=== PATIENT | female | born 1965 | race Caucasian/White ===

== ENCOUNTER → 2020-08-26 09:31 | Outpatient (CLI) | payer BC, SELFPAY ==
[2014-08-08 08:36] VITALS: BMI 32.4
[2020-08-26 09:41] LABS: Mucous, Urine 0 SEEN /hpf (<or=2+); Red Blood Cells-Urine 0 SEEN /hpf (0-5); Squamous Epithelial Cells - UA 0 SEEN /hpf (5-10)
[2020-08-26 12:25] LABS: Absolute Lymphocyte Count 1.75 X10^3/uL (0.83-4.51); Absolute Neutrophil Count 2.7 X10^3/uL (2.0-7.7); Basophil# 0.02 X10^3/uL; Basophil% 0.4 % (0-1); Eosinophil# 0.07 X10^3/uL; Eosinophils% 1.5 % (0-5); Hematocrit 40.6 % (37-47); Hemoglobin 13.1 g/dL (12.0-15.0); Lymphocyte # 1.75 X10^3/ul (4.0); Lymphocyte % 36.4 % (19-41); Mean Corp Hgb Conc 32.3 g/dL (32-36); Mean Corpuscular Hgb 29.8 pg (27.0-32.0); Mean Corpuscular Volume 92.5 fL (81-99); Monocyte# 0.23 X10^3/uL; Monocyte% 4.8 % (0-10); NRBC Flagged by Analyzer 0 % (0-5); Neutrophil # 2.73 X10^3/uL (2.7-7.7); Neutrophil % 56.7 % (47-70); Platelet Count 239 K/mm3 (150-450); Red Blood Count 4.39 M/mm3 (4.2-5.4); White Blood Count 4.8 K/mm3 (4.4-11.0)
[2020-08-26 12:43] LABS: Color, Urine Yellow (Yellow); Glucose, Dipstick Normal (Normal); Ketone-Dipstick Negative (Negative); Leukocyte Esterase-Dipstick 100 /ul (Negative); Nitrite-Dipstick Negative (Negative); Occult Blood-Urine Negative /ul (Negative); Protein-Dipstick Negative (Negative); Specific Gravity, Urine 1.015 (1.002-1.030); Urine Bilirubin Dipstick Negative (Negative); Urine Clarity Clear (Clear); Urine Urobilinogen Normal (Normal)
[2020-08-26 12:56] LABS: Bacteria RARE /hpf (None Seen); White Blood Cells 0-5 SEEN /hpf (0-5)
[2020-08-26 12:59] LABS: ALB/GLOB Ratio 0.9 RATIO (0.9-2.4); AST(SGOT) 19 U/L (15-37); Alanine Aminotransfer ALT/SGPT 24 U/L (13-56); Albumin, Serum 3.7 g/dL (3.2-5.0); Alkaline Phosphatase 88 U/L (45-117); Anion Gap 6 (5-15); BUN 10 mg/dL (7-18); BUN/Creat Ratio 11.3 RATIO (10-20); Calcium,Total 9.3 mg/dL (8.5-10.1); Chloride 109 mmol/L (98-107); Cholesterol 220 mg/dL (200); Creatinine, Serum 0.88 mg/dL (0.55-1.02); EST Glomerular Filtration Rate 71 mL/min (>60); Est Glom Filt Rate - Afr Amer 86 mL/min (>60); Globulin 4.2 g/dL (2.2-4.2); Glucose 84 mg/dL (74-106); High Density Lipoprotein 49 mg/dL; Potassium 3.7 mmol/L (3.5-5.1); Protein, Total 7.9 g/dL (6.4-8.2); Sodium Level 143 mmol/L (136-145); Thyroid Stim Hormone (TSH) 1.67 uIU/mL (0.358-3.74); Triglycerides 99 mg/dL; Very Low Density Lipoprotein 20 mg/dL (5-40)
[2020-08-26 14:22] LABS: Microalbumin,Random Urine < 5.0 mg/L (NO RANGE EST.)
== END ==
PROVIDERS: PCP Internal Medicine; Referring Provider Internal Medicine; Visit Provider Internal Medicine
DX: E78.00 Pure hypercholesterolemia, unspecified (principal); I10 Essential (primary) hypertension
CPT/HCPCS: 36415; 80053; 80061; 81001; 82043; 82570; 84443; 85025

== ENCOUNTER → 2022-03-17 | Outpatient (CLI) | payer OTHER, SELFPAY ==
--- NOTE | 2022-03-17 06:51 | US_ITS ---
EXAM: US ABDOMEN LIMITED, RIGHT UPPER QUADRANT CLINICAL INDICATION: RUQ PAIN intermittant -- burping -- bloating TECHNIQUE: Real-time ultrasound of the right upper quadrant with image documentation. This report was created using [employer] report [employer] technology. COMPARISON: None. FINDINGS: LIVER: Liver measures 15.5 cm. There is normal echotexture. No intrahepatic biliary ductal dilation. GALLBLADDER: Gallbladder wall measures 3 mm. No shadowing gallstone. No pericholecystic fluid. Negative sonographic Mercedes''s sign. COMMON BILE DUCT: Common bile duct measures 3 mm. The proximal common bile duct is within normal limits for the patient''s age. PANCREAS: Unremarkable as visualized. No focal abnormality is demonstrated in the pancreas. No pancreatic ductal dilatation. RIGHT KIDNEY: The right kidney measures 10.9 x 3.2 x 3.5 cm. There is no hydronephrosis. No shadowing calculus. No focal lesion or perinephric collection is demonstrated. US/Abdomen Limited IMPRESSION: No acute findings in the right upper quadrant. Electronically Signed: Pedro Carlisle MD at 10:55 EDT ,
[2022-03-17 06:54] LABS: Bacteria 0 SEEN /hpf (None Seen); Mucous, Urine 0 SEEN /hpf (<or=2+)
[2022-03-17 07:09] LABS: Absolute Lymphocyte Count 1.39 X10^3/uL (0.83-4.51); Absolute Neutrophil Count 2.7 X10^3/uL (2.0-7.7); Basophil# 0.03 X10^3/uL; Basophil% 0.7 % (0-1); Eosinophil# 0.13 X10^3/uL; Eosinophils% 2.8 % (0-5); Hematocrit 38.2 % (37-47); Hemoglobin 12.8 g/dL (12.0-15.0); Lymphocyte # 1.39 X10^3/ul (0.83-4.51); Lymphocyte % 30.3 % (19-41); Mean Corp Hgb Conc 33.5 g/dL (32-36); Mean Corpuscular Hgb 30.3 pg (27.0-32.0); Mean Corpuscular Volume 90.5 fL (81-99); Mean Platelet Vol. 9.1 fl (6.2-12.0); Monocyte# 0.31 X10^3/uL; Monocyte% 6.8 % (0-10); NRBC Flagged by Analyzer 0 % (0-5); Neutrophil # 2.72 X10^3/uL (2.7-7.7); Neutrophil % 59.2 % (47-70); Platelet Count 204 K/mm3 (150-450); RBC Distribution Width CV 12.2 % (11.6-14.6); RBC Distribution Width SD 40.6 fl (35.1-43.9); Red Blood Count 4.22 M/mm3 (4.2-5.4); White Blood Count 4.6 K/mm3 (4.4-11.0)
[2022-03-17 07:13] LABS: Glucose, Dipstick Normal (Normal); Ketone-Dipstick Negative (Negative); Leukocyte Esterase-Dipstick 25 /ul (Negative); Nitrite-Dipstick Negative (Negative); Occult Blood-Urine 10 /ul (Negative); Protein-Dipstick Negative (Negative); Urine Bilirubin Dipstick Negative (Negative); Urine Urobilinogen Normal (Normal)
[2022-03-17 07:37] LABS: ALB/GLOB Ratio 0.9 RATIO (0.9-2.4); AST(SGOT) 16 U/L (15-37); Alanine Aminotransfer ALT/SGPT 19 U/L (13-56); Albumin, Serum 3.7 g/dL (3.2-5.0); Alkaline Phosphatase 85 U/L (45-117); Anion Gap 5 (5-15); BUN 12 mg/dL (7-18); BUN/Creat Ratio 14.7 RATIO (10-20); Calcium,Total 9.1 mg/dL (8.5-10.1); Chloride 110 mmol/L (98-107); Cholesterol 220 mg/dL (200); Creatinine, Serum 0.82 mg/dL (0.55-1.02); EST Glomerular Filtration Rate 77 mL/min (>60); Est Glom Filt Rate - Afr Amer 93 mL/min (>60); Globulin 3.9 g/dL (2.2-4.2); Glucose 94 mg/dL (74-106); High Density Lipoprotein 46 mg/dL; Potassium 3.8 mmol/L (3.5-5.1); Protein, Total 7.6 g/dL (6.4-8.2); Sodium Level 143 mmol/L (136-145); Triglycerides 114 mg/dL; Very Low Density Lipoprotein 23 mg/dL (5-40)
[2022-03-17 07:38] LABS: Microalbumin,Random Urine < 5.0 mg/L (NO RANGE EST.)
[2022-03-17 07:57] LABS: Color, Urine YELLOW (Yellow); Urine Clarity Sl Cldy (Clear)
[2022-03-17 07:58] LABS: Red Blood Cells-Urine 0-5 SEEN /hpf (0-5); Squamous Epithelial Cells - UA 0-5 SEEN /hpf (5-10); White Blood Cells 0-5 SEEN /hpf (0-5)
[2022-03-17 08:05] LABS: Vitamin B12 279 pg/mL (211-911)
== END | disposition home or self-care (01) ==
PROVIDERS: PCP Internal Medicine; Referring Provider Internal Medicine; Visit Provider Internal Medicine
DX: R10.11 Right upper quadrant pain (principal); E55.9 Vitamin D deficiency, unspecified; R53.83 Other fatigue; I10 Essential (primary) hypertension
CPT/HCPCS: 36415; 76705; 80053; 80061; 81001; 82043; 82306; 82570; 82607; 85025

== ENCOUNTER 2022-04-20 16:33 | Emergency (ER) | payer OTHER, SELFPAY ==
[2022-04-20 16:34] VITALS: BP 153/101; PULSE 81; RESP 18; TEMP 36.9; O2SAT 98; BMI 32.2
--- NOTE | 2022-04-20 17:07 | EDS_ITS ---
HPI HPI - GI History of Present Illness Chief Complaint: Abd Pain Informant: patient Abdominal Pain/Flank Pain Onset: Month(s) Context: Gradual Onset Timing: Intermittent Quality: Aching Location: Right Flank Current Severity: Mild Maximum Severity: Mild Worsened by: Nothing Relieved by: Nothing Nausea/Vomiting/Emesis GI Symptom: Positive for Nausea; Negative for Vomiting Onset: Today Severity: Mild Diarrhea/Melena/Hematochezia GI Symptom: Negative for Diarrhea, Melena or Hematochezia Associated Symptoms Associated Symptoms: Negative for Dysuria, Frequency, Hematuria or Urgency Narrative Narrative: 57-year-old female history of hypertension prior kidney stone and a hysterectomy. States for the last couple months she has had intermittent right flank right upper quadrant abdominal pain. At times she gets bloated. Not specifically associated with food. She does have nausea but no vomiting. She has had diarrhea off and on. And reflux. Denies any fever. No dysuria. No hematuria. She has had no weight change or any melena. Her primary care physician had ordered an ultrasound within the last several weeks and it was negative. Prior similar symptoms: Yes Recent Illness/Hospitalization: No PFSH PFSH Medical History HTN (hypertension) Kidney stone Tachycardia Home Medications propranolol 80 mg tablet 80 mg PO DAILY 09/12/13 [History Last Taken 09/19/13 22:00] B-complex with vitamin C ml 04/20/22 [History Last Taken Unknown] aspirin 81 mg capsule 81 mg PO DAILY 04/20/22 [History Last Taken Unknown] Allergy/AdvReac Type Severity Reaction Status Date / Time codeine Allergy Swelling Verified 04/20/22 16:36 hydrocodone [Hydrocodone] Allergy Swelling Verified 04/20/22 16:36 Penicillins Allergy Swelling Verified 04/20/22 16:36 Antihistamines - Alkylamine AdvReac Other Verified 04/20/22 16:36 Social History Smoking Status: Unknown if ever smoked ROS ROS ED ROS Narrative Right flank pain. Nausea. Review of Systems ROS Unobtainable: Denies due to encephalopathy Constitutional Constitutional ED: Denies chills Cardiovascular Cardiovascular: Denies chest pain Respiratory/Chest Respiratory/Chest: Denies cough Gastrointestinal Gastrointestinal: Reports abdominal pain, diarrhea and nausea; Denies constipation, melena or vomiting Genitourinary Genitourinary ED: Denies dysuria Musculoskeletal Musculoskeletal: Denies arthralgias Integumentary Denies abscess Neurologic Neurologic: Denies headache(s) Psychiatric Psychiatric: Denies anxiety Endocrine Endocrinology: Denies polydipsia Hematologic/Lymphatic Hematologic/Lymphatic: Denies easy bleeding Allergic/Immunologic Allergic/Immunologic ED: Denies mouth swelling EXAM Physical Exam Narrative Exam Narrative: Evaluated female no acute distress vital signs stable afebrile. H EENT exam unremarkable. Lungs clear. Heart regular rhythm. Abdomen soft nontender distended, nontender, no peritoneal signs. No reproducible pain. She points to pain in the right flank but is not reproducible. There is no trauma. Back nontender. Moves all 4 extremities. Neurologically awake alert. Const Vital Signs: 04/20/22 16:34 Temperature 98.4 F Temperature Source Temporal Pulse Rate 81 Respiratory Rate 18 Blood Pressure 153/101 H Blood Pressure Mean 118 Pulse Ox 98 Oxygen Delivery Method Room Air Positive well nourished, well developed and obese; Negative for cachectic, contractures or unkempt General Appearance ED: well developed; Negative for unkempt, cachectic, contractures or pallor Nutritional Appearance: obese; Negative for cachectic HEENT Reports moist mucous membranes; Denies dry mucous membranes normocephalic and atraumatic; Negative for trauma or tenderness Mouth ED: No dry mucous membranes Mouth: No dry mucous membranes Eyes PERRL and EOMs intact bilaterally General Eye ED: Negative for pale conjunctiva or scleral icterus Neck no lymphadenopathy, supple and no JVD General: Negative for tenderness Lymph Lymphatic: Negative for other Resp normal respiratory effort and clear to auscultation bilaterally Effort and Inspection: Negative for respiratory distress Auscultation: Negative for rales, rhonchi or wheezes Cardio regular rate, regular rhythm, S1 normal heart sound, S2 normal heart sound and no murmurs GI non-tender, non-distended and no masses Inspection: Negative for abdominal distention Auscultation: normoactive bowel sounds; Negative for hyperactive bowel sounds Palpation: soft; Negative for tender, guarding or rigid Back/Spine no CVA tenderness General Back: Negative for CVA tenderness Extremity full ROM General Extremety ED: Negative for edema or tenderness General Extremity: Negative for edema Neuro CN's II-XII intact bilaterally and moves all extremities Sensorium / Orientation: alert, oriented to person, oriented to place and oriented to time; Negative for orientation impaired, confused, lethargic or stuporous Motor Exam: strength 5/5 throughout; Negative for general weakness Psych Appearance: Negative for unkempt Skin no wounds General Skin Exam: Negative for jaundice or pallor Lesions: no lesions Rashes: no rashes Nails: Negative for discolored MDM MDM MDM Narrative Medical decision making narrative: Evaluate female with intermittent recurrent right flank and abdominal pain. Labs to be obtained. Currently she has no reproducible pain. She does not like being for pain or nausea at this time. She had a recent negative ultrasound. Repeat exam patient is doing well. Abdomen is nontender at 9:17 PM. She will be discharged home with outpatient follow-up with her primary care physician. Lab Data Attestation: I reviewed the patient's lab results. Lab results narrative: CBC normal. White count of 5. H&H 12 and 37. Platelets normal. Electrolytes unremarkable gap of 4. Normal BUN and creatinine. Normal liver enzymes. Normal lipase at 118. UA negative. No whites nor red cells. Rare bacteria no nitrites. Labs: Laboratory Results - last 24 hr 04/20/22 04/20/22 04/20/22 17:15 17:15 17:15 WBC 5.9 RBC 4.17 L Hgb 12.5 Hct 37.9 MCV 90.9 MCH 30.0 MCHC 33.0 RDW Std Deviation 41.6 RDW Coeff of Rell 12.6 Plt Count 229 MPV 9.2 Immature Gran % (Auto) 0.200 Neut % (Auto) 54.0 Lymph % (Auto) 37.8 [place] % (Auto) 4.9 Eos % (Auto) 2.4 Baso % (Auto) 0.7 Absolute Neuts (auto) 3.2 Absolute Lymphs (auto) 2.24 Nucleated RBC % 0 Sodium 140 Potassium 4.0 Chloride 107 Carbon Dioxide 29.0 Anion Gap 4 L BUN 11 Creatinine 0.79 Estim Creat Clear Calc 57.79 Est GFR (MDRD) Af Amer 97 Est GFR (MDRD) Non-Af 80 BUN/Creatinine Ratio 13.9 Glucose 95 Calcium 9.4 Total Bilirubin 0.40 AST 12 L ALT 19 Alkaline Phosphatase 82 Total Protein 7.6 Albumin 3.8 Globulin 3.8 Albumin/Globulin Ratio 1.0 Lipase 118 Urine Color Yellow Urine Clarity Clear Urine pH 7.0 Ur Specific [place] 1.010 Urine Protein Negative Urine Glucose (UA) Normal Urine Ketones Negative Urine Occult Blood Negative Urine Nitrite Negative Urine Bilirubin Negative Urine Urobilinogen Normal Ur Leukocyte Esterase Negative Urine RBC 0-5 SEEN Urine WBC 0 SEEN Ur Squamous Epith Cells 0-5 SEEN Urine Bacteria RARE Urine Mucus 0 SEEN Discharge Plan Triage Chief Complaint: Abd Pain ED Provider: Brian Amado Dx/Rx/DC Orders Clinical Impression: Abdominal pain Prescriptions: No Action propranolol 80 MG tablet 80 mg PO DAILY Label Comments: EXTENDED RELEASE. for blood pressure/heart B-12 Plex W/Vitamin C Solution aspirin 81 mg Capsule 81 mg PO DAILY Primary Care Provider: Rosette Wynne Referrals: Rosette Wynne, [Primary Care Provider] - 1 Week if not improving Activity Restrictions/Additional Instructions: All your labs tonight were normal. Follow-up with your primary care physician if not improving. Disposition Disposition: Home, Self Care
[2022-04-20 17:21] LABS: Absolute Lymphocyte Count 2.24 X10^3/uL (0.83-4.51); Absolute Neutrophil Count 3.2 X10^3/uL (2.0-7.7); Basophil# 0.04 X10^3/uL; Basophil% 0.7 % (0-1); Color, Urine Yellow (Yellow); Eosinophil# 0.14 X10^3/uL; Eosinophils% 2.4 % (0-5); Glucose, Dipstick Normal (Normal); Hematocrit 37.9 % (37-47); Hemoglobin 12.5 g/dL (12.0-15.0); Ketone-Dipstick Negative (Negative); Leukocyte Esterase-Dipstick Negative /ul (Negative); Lymphocyte # 2.24 X10^3/ul (0.83-4.51); Lymphocyte % 37.8 % (19-41); Mean Corpuscular Volume 90.9 fL (81-99); Mean Platelet Vol. 9.2 fl (6.2-12.0); Monocyte# 0.29 X10^3/uL; Monocyte% 4.9 % (0-10); Mucous, Urine 0 SEEN /hpf (<or=2+); NRBC Flagged by Analyzer 0 % (0-5); Neutrophil # 3.21 X10^3/uL (2.7-7.7); Nitrite-Dipstick Negative (Negative); Occult Blood-Urine Negative /ul (Negative); Platelet Count 229 K/mm3 (150-450); Protein-Dipstick Negative (Negative); RBC Distribution Width CV 12.6 % (11.6-14.6); RBC Distribution Width SD 41.6 fl (35.1-43.9); Red Blood Count 4.17 M/mm3 (4.2-5.4); Urine Bilirubin Dipstick Negative (Negative); Urine Clarity Clear (Clear); Urine Urobilinogen Normal (Normal); White Blood Cells 0 SEEN /hpf (0-5); White Blood Count 5.9 K/mm3 (4.4-11.0)
[2022-04-20 17:49] LABS: Bacteria RARE /hpf (None Seen); Red Blood Cells-Urine 0-5 SEEN /hpf (0-5); Squamous Epithelial Cells - UA 0-5 SEEN /hpf (5-10)
[2022-04-20 17:50] LABS: AST(SGOT) 12 U/L (15-37); Alanine Aminotransfer ALT/SGPT 19 U/L (13-56); Albumin, Serum 3.8 g/dL (3.2-5.0); Alkaline Phosphatase 82 U/L (45-117); BUN 11 mg/dL (7-18); BUN/Creat Ratio 13.9 RATIO (10-20); Calcium,Total 9.4 mg/dL (8.5-10.1); Chloride 107 mmol/L (98-107); Creatinine, Serum 0.79 mg/dL (0.55-1.02); EST Glomerular Filtration Rate 80 mL/min (>60); Est Glom Filt Rate - Afr Amer 97 mL/min (>60); Estimated Creatinine Clearance 57.79 ml/min; Globulin 3.8 g/dL (2.2-4.2); Glucose 95 mg/dL (74-106); Lipase 118 U/L (73-393); Protein, Total 7.6 g/dL (6.4-8.2); Sodium Level 140 mmol/L (136-145)
[2022-04-20 17:51] LABS: Anion Gap 4 (5-15)
[2022-04-20 21:32] VITALS: BP 131/78; PULSE 78; RESP 16; O2SAT 98
== END 2022-04-20 21:34 | disposition home or self-care (01) ==
PROVIDERS: Emergency Provider Emergency Medicine; PCP Internal Medicine; Visit Provider Emergency Medicine
DX: R10.9 Unspecified abdominal pain (principal); I10 Essential (primary) hypertension; E66.9 Obesity, unspecified; Z79.82 Long term (current) use of aspirin; Z79.899 Other long term (current) drug therapy
CPT/HCPCS: 80053; 81001; 83690; 85025; 99283

== ENCOUNTER 2022-08-02 12:48 | Emergency (ER) | payer OTHER, SELFPAY ==
[2022-08-02 12:49] VITALS: BP 157/90; PULSE 77; RESP 16; TEMP 36.3; O2SAT 100; BMI 31.8
--- NOTE | 2022-08-02 13:08 | EKG12_ITS ---
Test Reason : PALP Blood Pressure : / mmHG Vent. Rate : 058 BPM Atrial Rate : 058 BPM P-R Int : 144 ms QRS Dur : 090 ms QT Int : 426 ms P-R-T Axes : 026 010 008 degrees QTc Int : 418 ms Sinus bradycardia Minimal voltage criteria for LVH, may be normal variant ( R in aVL ) Borderline ECG Confirmed by DARRION LAMAR, NAPOLEON ([id number]), commissioning editor WONG STEWARD ([id number]) on 08/04/2022 9:22:30 AM Referred By: Confirmed By:NAPOLEON MAIER MD
--- NOTE | 2022-08-02 13:09 | ED.VIS.CHEST ---
HPI History of Present Illness Chief Complaint: Chest Other Narrative Narrative: Patient with past medical history of anxiety/palpitations and tachycardia, hypertension takes propranolol 80 mg daily for these ailments presents after choking episode that she experienced 45 minutes ago. She states that she was eating pork and sauerkraut and felt to get stuck substernally. This is never really happened to her before. She states it took a while for her to get it back up. She denies having shortness of breath with it or actual vomiting, but felt that it was stuck at the level of her mid chest. She also has history of GERD. While she feels like she got the piece of food out of what was probably in her esophagus, she states it took her a while and she was able to drink fluids afterwards. However, she is concerned because she is having anxiety and chest pain over this. She also states that over the last few weeks she has had increasing palpitations. She wants to be evaluated for her palpitations and to make sure that she does not have an esophageal food impaction. [facility] Medical History HTN (hypertension) Kidney stone Tachycardia Home Medications propranolol 80 mg tablet 80 mg PO DAILY 09/12/13 [History Last Taken 09/19/13 22:00] B-complex with vitamin C ml 04/20/22 [History Last Taken Unknown] aspirin 81 mg capsule 81 mg PO DAILY 04/20/22 [History Last Taken Unknown] Allergy/AdvReac Type Severity Reaction Status Date / Time codeine Allergy Swelling Verified 08/02/22 12:53 hydrocodone [Hydrocodone] Allergy Swelling Verified 08/02/22 12:53 Penicillins Allergy Swelling Verified 08/02/22 12:53 Antihistamines - Alkylamine AdvReac Other Verified 08/02/22 12:53 Social History Smoking Status: Unknown if ever smoked ROS ROS ED ROS Narrative Constitutional: No fever, no chills. HEENT: No sore throat. No neck pain. No loss of vision. No rhinorrhea. Cardiovascular: Positive midsternal chest pain. Positive palpitations. No pedal edema. Respiratory: No cough, no shortness of breath. Abdominal: No abdominal pain. No nausea. No vomiting. [place] as if food was stuck in midesophagus-resolved. Genitourinary: No dysuria. No hematuria. Musculoskeletal: No myalgias. No arthralgias. Neurologic: No headaches. No dizziness. No lightheadedness. Skin: No rash. No change in color. Psychiatric: No depression. No anxiety. EXAM Physical Exam Narrative Exam Narrative: Afebrile. Vital signs noted. HEENT: Normocephalic. Atraumatic. PERRL, EOMI. Neck soft and supple. No point tenderness or step off. Cardiovascular: Regular rate and rhythm. No murmurs, rubs, or gallops appreciated. Respiratory: No tachypnea. Lungs clear to auscultation bilaterally. Gastrointestinal: Abdomen soft, nontender, with normoactive bowel sounds. No rebound or guarding. Neurological: Awake. Alert. Nonfocal, nonlateralizing. Skin: No rash. Normal color. No pallor. Musculoskeletal: No pedal edema. Full range of motion extremities. Const Vital Signs: 08/02/22 12:49 08/02/22 12:58 08/02/22 13:10 Temperature 97.4 F L Temperature Source Temporal Pulse Rate 77 Respiratory Rate 16 Respiratory Effort Normal Non-Labored Blood Pressure 157/90 H Blood Pressure Mean 112 Pulse Ox 100 Oxygen Delivery Method Room Air Room Air 08/02/22 14:53 Temperature Temperature Source Pulse Rate 53 L Respiratory Rate 12 Respiratory Effort Blood Pressure 149/90 H Blood Pressure Mean 109 Pulse Ox 100 Oxygen Delivery Method Room Air Heart Score History: Slightly/Non-Suspicious ECG: Normal Age: >45 - <65 years Risk Factors: No Risk Factors Troponin: </= Normal Limit Score: 1 MDM MDM MDM Narrative Medical decision making narrative: Comprehensive work-up was pursued. I will give the patient a p.o. fluid challenge to ensure that she does not have an esophageal food impaction. Her pulse ox is 100% on room air without evidence of hypoxia. She was told that she will require follow-up with gastroenterology for upper GI endoscopy. EKG interpreted by myself demonstrates normal sinus rhythm/bradycardia at 58 bpm without ectopy or acute ST changes. No STEMI. She is on a beta-karl which could cause her bradycardia. CBC shows normal white count of 5.2, hemoglobin normal at 12.9 with hematocrit 40.2. Platelet count normal at 231. Electrolyte panel shows chloride slightly elevated 108, otherwise unremarkable with a normal glucose of 95. Initial high-sensitivity troponin 4. Chest x-ray interpreted by myself in 1 view shows no evidence of infiltrate or pneumothorax. She was able to use passed a bedside p.o. challenge of water without difficulty. As her repeat 2-hour troponin is 6 for a delta troponin less than 7, I do feel that she would be able to be discharged safely home with follow-up to her primary care provider. Return instructions to the emergency department were reviewed. Disposition is discharged home in stable condition. Lab Data Attestation: I reviewed the patient's lab results. Labs: Laboratory Results - last 24 hr 08/02/22 08/02/22 08/02/22 13:22 13:22 15:30 WBC 5.2 RBC 4.33 Hgb 12.9 Hct 40.2 MCV 92.8 MCH 29.8 MCHC 32.1 RDW Std Deviation 43.2 RDW Coeff of Rell 12.7 Plt Count 231 MPV 9.6 Immature Gran % (Auto) 0.200 Neut % (Auto) 55.8 Lymph % (Auto) 35.1 [place] % (Auto) 5.4 Eos % (Auto) 2.7 Baso % (Auto) 0.8 Absolute Neuts (auto) 2.9 Absolute Lymphs (auto) 1.82 Nucleated RBC % 0 Sodium 143 Potassium 3.5 Chloride 108 H Carbon Dioxide 30.0 Anion Gap 5 BUN 9 Creatinine 0.84 Estim Creat Clear Calc 54.35 Est GFR (MDRD) Af Amer 91 Est GFR (MDRD) Non-Af 75 BUN/Creatinine Ratio 10.7 Glucose 95 Calcium 9.2 Troponin I High Sens 4 6 Radiography Diagnostic Testing: Clinical Impression(s) from Imaging Studies Chest X-Ray 08/02/22 13:25 IMPRESSION: Normal x-ray examination of the chest. Electronically Signed: Cameron Mckay MD at 13:42 EDT , Discharge Plan Triage Chief Complaint: Chest Other ED Provider: Raphael Cyr Dx/Rx/DC Orders Clinical Impression: Chest pain, Dysphagia, Palpitations Instructions: ED Chest Pain, Noncardiac, ED Chest Pain, Uncertain Cause, ED Palpitations, ED Dysphagia (Adult) Prescriptions: No Action propranolol 80 MG tablet 80 mg PO DAILY Label Comments: EXTENDED RELEASE. for blood pressure/heart B-12 Plex W/Vitamin C Solution aspirin 81 mg Capsule 81 mg PO DAILY Primary Care Provider: Rosette Wynne Referrals: Rosette Wynne DO [Primary Care Provider] - 3-5 Days if not improving Jose Singh DO [Med Staff - Active Staff] - As soon as possible Disposition Disposition: Home, Self Care
--- NOTE | 2022-08-02 13:25 | RAD_ITS ---
STUDY: X-RAY CHEST REASON FOR EXAM: Female, 57 years old. Chest pain following choking episode. TECHNIQUE: Single AP portable view of the chest. COMPARISON: None. FINDINGS: EKG electrodes are seen. The lungs are clear and expanded. Scattered calcified granulomas. There is no demonstrated pleural abnormality. Normal size heart. Normal mediastinum and anibal. Normal visualized pulmonary arteries. Normal visualized aortic arch and descending thoracic aorta. Normal visualized thoracic spine. Normal visualized ribs, clavicles, and shoulders. There is no demonstrated abnormality of the visualized soft tissue structures of the upper abdomen. RAD/Chest 1 View (Portable) IMPRESSION: Normal x-ray examination of the chest. Electronically Signed: Cameron Mckay MD at 13:42 EDT ,
[2022-08-02 13:31] LABS: Absolute Lymphocyte Count 1.82 X10^3/uL (0.83-4.51); Absolute Neutrophil Count 2.9 X10^3/uL (2.0-7.7); Basophil# 0.04 X10^3/uL; Basophil% 0.8 % (0-1); Eosinophil# 0.14 X10^3/uL; Eosinophils% 2.7 % (0-5); Hematocrit 40.2 % (37-47); Hemoglobin 12.9 g/dL (12.0-15.0); Lymphocyte # 1.82 X10^3/ul (0.83-4.51); Lymphocyte % 35.1 % (19-41); Mean Corp Hgb Conc 32.1 g/dL (32-36); Mean Corpuscular Hgb 29.8 pg (27.0-32.0); Mean Corpuscular Volume 92.8 fL (81-99); Mean Platelet Vol. 9.6 fl (6.2-12.0); Monocyte# 0.28 X10^3/uL; Monocyte% 5.4 % (0-10); NRBC Flagged by Analyzer 0 % (0-5); Neutrophil # 2.89 X10^3/uL (2.7-7.7); Neutrophil % 55.8 % (47-70); Platelet Count 231 K/mm3 (150-450); RBC Distribution Width CV 12.7 % (11.6-14.6); RBC Distribution Width SD 43.2 fl (35.1-43.9); Red Blood Count 4.33 M/mm3 (4.2-5.4); White Blood Count 5.2 K/mm3 (4.4-11.0)
[2022-08-02 13:44] LABS: Anion Gap 5 (5-15); BUN 9 mg/dL (7-18); BUN/Creat Ratio 10.7 RATIO (10-20); Calcium,Total 9.2 mg/dL (8.5-10.1); Chloride 108 mmol/L (98-107); Creatinine, Serum 0.84 mg/dL (0.55-1.02); EST Glomerular Filtration Rate 75 mL/min (>60); Est Glom Filt Rate - Afr Amer 91 mL/min (>60); Estimated Creatinine Clearance 54.35 ml/min; Glucose 95 mg/dL (74-106); Potassium 3.5 mmol/L (3.5-5.1); Sodium Level 143 mmol/L (136-145); Troponin-I HS (w/2H Reflex) 4 pg/mL (3.0-54.0)
[2022-08-02 14:53] VITALS: BP 149/90; PULSE 53; RESP 12; O2SAT 100
[2022-08-02 15:26] LABS: Reflex Troponin-HS? (from REC) Y
[2022-08-02 16:03] LABS: Troponin-I HS 6 pg/mL (3.0-54.0)
[2022-08-02 16:22] VITALS: BP 140/89; PULSE 53; RESP 14; O2SAT 97
== END 2022-08-02 16:23 | disposition home or self-care (01) ==
PROVIDERS: Emergency Provider Emergency Medicine; PCP Internal Medicine; Visit Provider Emergency Medicine
DX: R07.9 Chest pain, unspecified (principal); R13.10 Dysphagia, unspecified; R00.2 Palpitations; I10 Essential (primary) hypertension; Z79.82 Long term (current) use of aspirin; Z79.899 Other long term (current) drug therapy
CPT/HCPCS: 71045; 80048; 84484; 85025; 93005; 99284; A4216

== ENCOUNTER 2022-11-15 08:18 | Day surgery (SDC) | payer OTHER, SELFPAY ==
[2022-11-15] VITALS (7 sets, daily range): BP systolic 96–137; BP diastolic 48–80; PULSE 55–67; RESP 16; TEMP 36.1–36.9; O2SAT 97–100; BMI 31.8
[2022-11-15] MEDS: Lactated Ringers 1,000 ML 15 ML IV (09:00)
--- NOTE | 2022-11-15 09:35 | HP.PCM_ITS ---
HPI - General HPI Narrative ROCKY REYNA, is a 57 F who presents for screening colonoscopy. Patient never had previous colonoscopy. Patient denies any family history of colon cancer. Patient has bowel movement about every 4 days denies any blood. Patient denies any chronic abdominal pain/nausea/vomiting. Patient states he does have regurgitation/reflux denies burning up the esophagus but that is almost daily will occasionally take some Pepcid otherwise not on any daily medications. Patient states in her 20s she did have an EGD and had an ulcer at that time and was on Tagamet and Protonix but has been off of it for quite some time. [facility] Medical History (Updated 11/15/22 @ 10:[address] Ester Abel MD) Anemia Anxiety B12 deficiency Back pain Basal cell carcinoma of skin, unspecified Cancer Cardiology follow-up encounter Gastric reflux History of IBS History of irregular heartbeat History of pain when walking History of stress test HTN (hypertension) Injury of back Injury of head and neck Kidney stone Migraine headache Non-smoker Tachycardia Vitamin D deficiency, unspecified Wears glasses Home Medications propranolol 80 mg tablet 80 mg PO DAILY 09/12/13 [History Last Taken 11/15/22 00:00] aspirin-caffeine 400 mg-32 mg tablet (Anacin) 1 tab PO Q6H PRN Migraine Headache 11/11/22 [History Last Taken Unknown] Allergy/AdvReac Type Severity Reaction Status Date / Time clindamycin Allergy Nausea/Vom/ Verified 11/15/22 08:55 Diarrhea codeine Allergy Swelling Verified 11/15/22 08:55 hydrocodone [Hydrocodone] Allergy Swelling Verified 11/15/22 08:55 oseltamivir [From Tamiflu] Allergy Other Verified 11/15/22 08:55 Penicillins Allergy Swelling Verified 11/15/22 08:55 Antihistamines - Alkylamine AdvReac Other Verified 11/15/22 08:55 Family History (Updated 10/01/22 @ 11:11 by Camilla Grayson) Grandfather Throat cancer Surgical History (Updated 11/11/22 @ 15:55 by Tatiana Lima) History of dilation and curettage History of total vaginal hysterectomy History of tubal ligation Hx of cystoscopy Social History (Updated 10/01/22 @ 11:12 by Camilla Grayson) household members: spouse current occupational status: employed Smoking Status: Never smoker Past Medical/Surgical History Planned Operation Planned Operative Procedure/s: COLONOSCOPY-OA S.O.S: No Previous Hospitalizations/Surgeries HX Hospitalizations: No HX of Surgeries: childbirth, tubal, kidney stone removeal x3 Any Problems With Anesthesia: Yes (anxiety, couldn't breathe, N&V) You/Your Family Experience Fever (Hyperthermia) With Anes: No Cholinesterase deficiency: No Cardiovascular Hx of Irregular Heartbeat and/or Afib: Yes (has had problems with a racing heartbeat) Hx Heart Attack: No Hx Congestive Heart Failure: No Hx Rheumatic Fever: No Hx Hypertension: Yes (CONTROLLED ON MED) Hx Internal Defibrillator: No Hx Pacemaker: No Hx Cardiac Catheterization: No Hx Cardiac Surgery/Stents/Etc.: No Hx Stress Test: Yes (d/t racing heart) Respiratory Chronic Cough: No HX of Shortness of Breath: No Hoarseness: No Hx Chronic Obstructive Pulmonary Disease (COPD): No Hx Asthma: No Hx Emphysema: No Hx Sleep Apnea: No CPAP: No BIPAP: No Hx Respiratory Tract Infection/Cold (presently): No Do You Snore Loudly (louder than talking or can be heard): No Do You Often Feel Tired/ Fatigued/ Sleepy [place]ring Daytime?: No Has Anyone Observed You Stop Breathing During Sleep?: No Result (for STOP score): Negative Hx Smoking: No Smoking Status: Never smoker Gastrointestinal Hx Gastroesophageal Reflux: Yes Controlled With Meds: No Hx Gastrointestinal Disorders: Yes (ibs) Hx Ulcer: Yes (20 yrs ago) Hx Hiatal Hernia: No Difficulty Chewing/Swallowing: Yes (swallowing) Special diet followed at home: No Hx Unplanned Weight Loss of 20#: No HX Unplanned Weight Gain of 20#: No Neurological Hx Seizures: No HX Syncope/Blackout Spells/Unconsciousness: No Hx Transient Ischemic Attacks (TIA): No Hx Parkinson's Disease: No Hx Head/Neck Injury: No Hx Headaches: Yes (migraines) Hx Back Injury/Pain: Yes (was run over by a lawnroller) Recent Onset of Speech Difficulty: No Restless Legs: No Does patient have nerve stimulator: No Blood Disorder Hx Leukemia: No Bleeding Tendencies: No Hx Deep Vein Thrombosis: No Hx High Cholesterol: No Blood Transmitted Disease: No Hx Hepatitis: No Hx Cirrhosis: No Hx Anemia: Yes (period related) Hx Blood Disorders: No Reproduction Is Patient Lactating: No Hx Hysterectomy: No Hx Tubal Ligation: Yes Are You Post Menopause: No Genitourinary Hx Renal Disease: Yes (kidney stones) Musculoskeletal Hx Rheumatoid Arthritis: No Hx Gout: No Recent Onset of an Orthopedic Problem: No Endocrine Hx Diabetes: No Thyroid Disease: No Hx Steroid Therapy: No Psycho/Social Hx Substance Use: No Hx Alcohol Use: No Hx Anxiety: Yes Hx Depression: Yes Mental Illness: No Miscellaneous Hx Cancer: No Recent Exposure to Contagious Disease: No Hx of C-Diff: No Any Loose Teeth: No Allergies clindamycin Allergy (Verified 11/15/22 08:55) Nausea/Vom/Diarrhea codeine Allergy (Verified 11/15/22 08:55) Swelling hydrocodone [Hydrocodone] Allergy (Verified 11/15/22 08:55) Swelling oseltamivir [From Tamiflu] Allergy (Verified 11/15/22 08:55) Other BAD DREAMS-HALLUCINATIONS Penicillins Allergy (Verified 11/15/22 08:55) Swelling Antihistamines - Alkylamine Adverse Reaction (Verified 11/15/22 08:55) Other Discharge Is Pt Admitted From a Retirement, or a Skilled Nursing: No After D/C, Where Do you Plan to Go: Return Home Vital Signs Vital Signs Vital Signs: 11/15/22 08:57 11/15/22 08:57 Temperature 97.0 F L Temperature Source Temporal Pulse Rate 55 L Respiratory Rate 16 Respiratory Pattern Normal Blood Pressure 137/80 H Blood Pressure Mean 99 Blood Pressure Source Monitor Blood Pressure Position Sitting Blood Pressure Location Left Arm Pulse Ox 100 Oxygen Delivery Method Room Air Weight Weight: 163 lb 2.273 oz Body Mass Index (BMI) 31.8 Physical Exam Const alert, oriented x3 and no apparent distress HEENT normocephalic and head/scalp atraumatic Resp normal respiratory effort Cardio regular rate GI soft to palpation and non-tender; Negative for non-distended Palpation: Negative for guarding Extremity no clubbing, cyanosis or edema Neuro CN's II-XII intact bilaterally Psych mental status grossly normal Assessment & Plan Assessment/Plan (1) Encounter for screening for malignant neoplasm of colon: (2) GERD (gastroesophageal reflux disease): PLAN: Plan Discussed with patient we will start patient on Protonix 40 mg p.o. daily if this does not improve her reflux would encourage getting an EGD in the future. Surgery Risks - Colonoscopy Risks Include but are not Limited To: Risks include but are not limited to: Bleeding, perforation requiring further surgery, inability to complete colonoscopy requiring barium enema.
--- NOTE | 2022-11-15 09:45 | COLBX_PTH ---
PATIENT: ROCKY REYNA LOC: EN U#:[id number] AGE/SX: 57/F ROOM: RE11/15/[address]: Dr. Ester Abel MD : 1965 BED: DIS: 11/15/2022 SPEC #: [id number] RECD: 11/15/22 11:03 STATUS: MOIRA JUANCHO #: [id number] LOKESH: 11/15/22 09:[address]: Ester Abel DEPT: SURGICAL PATHOLOGY RECD BY: Nicki Harrington ENTERED: 11/15/22 13:23 SP TYPE: COLON BX OTHR DR: Dr. Rosette Wynne, Tissues: Sigmoid colon biopsy Procedures: Surgery Specimen Level IV HEADER OPERATION: Colonoscopy ? open access (MAC), biopsy PRE-OP DIAGNOSIS: Screening, GERD TISSUE SUBMITTED: Sigmoid polyp biopsy MICROSCOPIC DIAGNOSIS Sigmoid polyp, biopsy: Fragments of tubular adenoma. SJ:ciara 11/16/2022 MICROSCOPIC DESCRIPTION Slides are reviewed. GROSS DESCRIPTION Received in fixative is one container labeled with the patient's name and designated sigmoid polyp biopsy. The specimen consists of multiple irregular fragments of light greene soft tissue that in aggregate measure 0.6 x 0.5 x 0.1 cm. The specimen is totally submitted in one cassette. / SJ:rg 11/15/2022 TC:1 CPT: 27341
--- NOTE | 2022-11-15 11:07 | OP.COLON_ITS ---
Patient Name: Grace Armenta Procedure Date: 11/15/2022 10:23 AM Date of : 1965 Age: 57 Procedure: Colonoscopy Indications: Screening for colorectal malignant neoplasm Providers: Ester Abel MD Medicines: Monitored Anesthesia Care Patient Profile: This is a 57 year old female. Last Colonoscopy: none. The patient's first colonoscopy is today. Complications: No immediate complications. Procedure: Pre-Anesthesia Assessment: - Prior to the procedure, a History and Physical was performed, and patient medications and allergies were reviewed. The patient's tolerance of previous anesthesia was also reviewed. The risks and benefits of the procedure and the sedation options and risks were discussed with the patient. All questions were answered, and informed consent was obtained. Prior Anticoagulants: The patient has taken no previous anticoagulant or antiplatelet agents. ASA Grade Assessment: Per anesthesia. After reviewing the risks and benefits, the patient was deemed in satisfactory condition to undergo the procedure. After I obtained informed consent, the scope was passed under direct vision. Throughout the procedure, the patient's blood pressure, pulse, and oxygen saturations were monitored continuously. The colonoscope was introduced through the anus and advanced to the cecum, identified by the appendiceal orifice, ileocecal valve and palpation. The colonoscopy was performed without difficulty. The patient tolerated the procedure well. The quality of the bowel preparation was good. Scope In: 10:31:23 AM Scope Withdrawal Time 0 hours 13 minutes 43 seconds Scope Out: 10:52:24 AM Total Procedure Duration Time 0 hours 21 minutes 1 second Findings: The perianal and digital rectal examinations were normal. A less than 5 mm polyp was found in the sigmoid colon. The polyp was sessile. The polyp was removed with a cold biopsy forceps. Resection and retrieval were complete. The exam was otherwise without abnormality on direct and retroflexion views. Impression: - One less than 5 mm polyp in the sigmoid colon, removed with a cold biopsy forceps. Resected and retrieved. - The examination was otherwise normal on direct and retroflexion views. Recommendation: - Discharge patient to home. - Resume previous diet. - Continue present medications. - Await pathology results. - Repeat colonoscopy in 5 years for surveillance based on pathology results. Procedure Code(s): --- Professional --- 90478, PT, Colonoscopy, flexible; with biopsy, single or multiple Diagnosis Code(s): --- Professional --- Z12.11, Encounter for screening for malignant neoplasm of colon D12.5, Benign neoplasm of sigmoid colon CPT copyright 2017 [employer]. All rights reserved. The codes documented in this report are preliminary and upon certified medical coder review may be revised to meet current compliance requirements. MD Ester Marcos MD 11/15/2022 11:07:36 AM This report has been signed electronically. Number of Addenda: 0 Note Initiated On: 11/15/2022 10:23 AM
--- NOTE | 2022-11-15 11:08 | OP.CCLET_ITS ---
11/15/2022 Rosette Wynne [address] [place] [address] Re : Colonoscopy procedure for Grace Armenta Dear Dr. Wynne This procedure was performed on Tuesday, November 15, 2022. My impressions and recommendations are as follows: Impressions : - One less than 5 mm polyp in the sigmoid colon, removed with a cold biopsy forceps. Resected and retrieved. - The examination was otherwise normal on direct and retroflexion views. Recommendations : - Discharge patient to home. - Resume previous diet. - Continue present medications. - Await pathology results. - Repeat colonoscopy in 5 years for surveillance based on pathology results. My findings are described in the full procedure note, which is enclosed. If I can be of further assistance, please feel free to contact me at Doctor phone number(s): , Work: . Sincerely, MD Ester Marcos MD 11/15/2022 11:07:36 AM This report has been signed electronically.
== END 2022-11-15 11:47 | disposition home or self-care (01) ==
LOC: EN 08:20 → AC 08:22
PROVIDERS: PCP Internal Medicine; Referring Provider Internal Medicine; Visit Provider Surgery
PROC: 0DJD8ZZ Inspection of Lower Intestinal Tract, Via Natural or Artificial Opening Endoscopic (ICD-10-PCS; CPT 45378; principal; 2022-11-15 09:40)
DX: Z12.11 Encounter for screening for malignant neoplasm of colon (principal); D12.5 Benign neoplasm of sigmoid colon; K21.9 Gastro-esophageal reflux disease without esophagitis; I10 Essential (primary) hypertension; Z79.899 Other long term (current) drug therapy; F41.9 Anxiety disorder, unspecified
CPT/HCPCS: 45380; 88305; J7120; J2405

== ENCOUNTER 2023-02-27 15:45 | Emergency (ER) | payer OTHER, SELFPAY ==
[2023-02-27 15:46] VITALS: BP 154/82; PULSE 71; RESP 17; TEMP 36.2; O2SAT 99; BMI 33.6
--- NOTE | 2023-02-27 15:59 | EX.ED.DYSGE1 ---
HPI History of Present Illness Chief Complaint: Bite Informant: patient Onset/Context/Timing Onset: Today Narrative Narrative: Patient presents with a squirrel bite to her right index finger. She states she was out in [place] when she saw a baby squirrel on the ground. It appeared to have a broken leg and had difficulty getting around. Her dog went after the squirrel so she picked it up. It turned and bit her on the right index finger. She washed the wound well. She states she was looking at some online recommendations and was unsure of her last tetanus update so presented for evaluation. [facility] Medical History Anemia Anxiety B12 deficiency Back pain Basal cell carcinoma of skin, unspecified Cancer Cardiology follow-up encounter Gastric reflux History of IBS History of irregular heartbeat History of pain when walking History of stress test HTN (hypertension) Injury of back Injury of head and neck Kidney stone Migraine headache Non-smoker Tachycardia Vitamin D deficiency, unspecified Wears glasses Home Medications propranolol 80 mg tablet 80 mg PO DAILY 09/12/13 [History Last Taken 11/15/22 00:00] aspirin-caffeine 400 mg-32 mg tablet (Anacin) 1 tab PO Q6H PRN Migraine Headache 11/11/22 [History Last Taken Unknown] pantoprazole 40 mg tablet,delayed release 40 mg PO DAILY #30 tabs 11/15/22 [Rx Last Taken Unknown] cephalexin 500 mg capsule 500 mg PO Q6 #20 CAPSULES 02/27/23 [Rx Last Taken Unknown] sulfamethoxazole 800 mg-trimethoprim 160 mg tablet (Bactrim DS) 1 tab PO BID #10 tabs 02/27/23 [Rx Last Taken Unknown] Allergy/AdvReac Type Severity Reaction Status Date / Time clindamycin Allergy Nausea/Vom/ Verified 02/27/23 15:47 Diarrhea codeine Allergy Swelling Verified 02/27/23 15:47 hydrocodone [Hydrocodone] Allergy Swelling Verified 02/27/23 15:47 oseltamivir [From Tamiflu] Allergy Other Verified 02/27/23 15:47 Penicillins Allergy Swelling Verified 02/27/23 15:47 Antihistamines - Alkylamine AdvReac Other Verified 02/27/23 15:47 Family History Grandfather Throat cancer Surgical History History of dilation and curettage History of total vaginal hysterectomy History of tubal ligation Hx of cystoscopy Social History household members: spouse current occupational status: employed Smoking Status: Never smoker ROS ROS ED Constitutional Constitutional ED: Denies chills or fever(s) ENT ENT ED: Denies rhinorrhea or sore throat Cardiovascular Cardiovascular: Denies chest pain Respiratory/Chest Respiratory/Chest: Denies cough or dyspnea Gastrointestinal Gastrointestinal: Denies abdominal pain, nausea or vomiting Musculoskeletal Musculoskeletal: Reports extremity pain; Denies back pain Integumentary Reports other Details: Bite wound ; Denies Abrasions or rash Neurologic Neurologic: Denies paresthesias or weakness Psychiatric Psychiatric: Denies anxiety or depression Endocrine Endocrinology: Denies polydipsia or polyuria Allergic/Immunologic Allergic/Immunologic ED: Denies lip swelling or urticaria EXAM Physical Exam Const Vital Signs: 02/27/23 15:46 Temperature 97.2 F L Temperature Source Temporal Pulse Rate 71 Respiratory Rate 17 Blood Pressure 154/82 H Blood Pressure Mean 106 Pulse Ox 99 Oxygen Delivery Method Room Air Positive well nourished and well developed General Appearance ED: well developed HEENT Reports moist mucous membranes Eyes PERRL and EOMs intact bilaterally Neck no lymphadenopathy Chest Wall inspection of chest normal and palpation of chest normal Resp normal respiratory effort and clear to auscultation bilaterally Cardio regular rate and regular rhythm GI normal to inspection, nondistended, normoactive bowel sounds Extremity Extremity Narrative: 2 mm in length bite wound to the radial side of the right index finger over the middle phalanx. Full range of motion of all digits. Good cap refill and sensation distally. Neuro oriented x3 and no sensory deficits noted Motor Exam: strength 5/5 throughout Skin Skin Narrative: Bite wound as noted above. MDM MDM MDM Narrative Medical decision making narrative: I did review the [facility] website. They have been no cases of rabies reported and squirrels on testing over the last 4 years. I do not believe she needs rabies prophylaxis. Her tetanus will be updated. I will treat her with Bactrim and Keflex to help event infection. Return instructions given. Discharge Plan Triage Chief Complaint: Bite ED Provider: Kori Castro Dx/Rx/DC Orders Clinical Impression: Bite wound Instructions: ED Animal Bite (General) Prescriptions: New sulfamethoxazole-trimethoprim [Bactrim DS] 800-160 mg tablet 1 tab PO BID Qty: 10 0RF cephalexin 500 mg capsule 500 mg PO Q6 Qty: 20 0RF No Action propranolol 80 MG tablet 80 mg PO DAILY Label Comments: EXTENDED RELEASE. for blood pressure/heart Anacin 400-32 mg Tablet 1 tab PO Q6H PRN (Reason: Migraine Headache) pantoprazole 40 mg tablet,delayed release (DR/EC) 40 mg PO DAILY Qty: 30 2RF Primary Care Provider: Rosette Wynne Referrals: Rosette Wynne DO [Primary Care Provider] - As Needed Disposition Disposition: Home, Self Care
[2023-02-27] MEDS: Diphth,Pertuss(Acell),Tet Vac 0.5 ML Vial IM (16:05)
[2023-02-27] MEDS: Cephalexin 250 MG Capsule 500 MG PO (16:05)
[2023-02-27] MEDS: Smz/Tmp Ds Tablet 1 TABLET PO (16:05)
== END 2023-02-27 16:34 | disposition home or self-care (01) ==
LOC: ED 16:10
PROVIDERS: Emergency Provider Emergency Medicine; PCP Internal Medicine; Visit Provider Emergency Medicine
DX: S61.250A Open bite of right index finger without damage to nail, initial encounter (principal); I10 Essential (primary) hypertension; Z79.899 Other long term (current) drug therapy; F41.9 Anxiety disorder, unspecified; W53.21XA Bitten by squirrel, initial encounter
CPT/HCPCS: 99283

== ENCOUNTER 2023-10-15 10:25 | Emergency (ER) | payer OTHER, SELFPAY ==
[2023-10-15 10:26] VITALS: BP 192/98; PULSE 71; RESP 15; TEMP 36.6; O2SAT 100; BMI 35.3
--- NOTE | 2023-10-15 10:40 | ED.VIS.CHEST ---
HPI History of Present Illness Chief Complaint: Chest Pain Informant: patient Onset/Context/Timing Onset: Today Activity at onset: sudden Timing: Continuous Quality: Positive for Tightness Location: Right Parasternal Worsened By: - (Turning her head to the right) Relieved By: Nothing Associated Symptoms: Positive for Diaphoresis, Lightheadedness and Palpitations Narrative Narrative: Patient presents with chest pain that began approximately 1 hour prior to arrival. Patient states it began rather suddenly. Patient states it seems to be more on the right side of her chest and in the right parasternal area. Patient states it is worse when she turns her head to the right. Patient states it feels more like a tightness in her chest. Patient states she feels lightheaded and dizzy. Patient also admits to some palpitations where she felt like her heart was doing flip-flops. CVD Risk Factors: Positive for Hypertension and Family History 1' </=55; Negative for Diabetes, Hypercholesterolemia or Smoking PE Risk Factors: Positive for Cancer (Skin cancer); Negative for Recent Travel/Surgery, Recent Immobilization, Prior DVT or PE or OCP + Smoking + >/=35 PFSH PFSH Medical History Anemia Anxiety B12 deficiency Back pain Basal cell carcinoma of skin, unspecified Cancer Cardiology follow-up encounter Gastric reflux History of IBS History of irregular heartbeat History of pain when walking History of stress test HTN (hypertension) Injury of back Injury of head and neck Kidney stone Migraine headache Non-smoker Tachycardia Vitamin D deficiency, unspecified Wears glasses Home Medications propranolol 80 mg tablet 80 mg PO QHS 09/12/13 [History Last Taken 11/15/22 00:00] Allergy/AdvReac Type Severity Reaction Status Date / Time clindamycin Allergy Nausea/Vom/ Verified 02/27/23 15:47 Diarrhea codeine Allergy Swelling Verified 02/27/23 15:47 hydrocodone [Hydrocodone] Allergy Swelling Verified 02/27/23 15:47 oseltamivir [From Tamiflu] Allergy Other Verified 02/27/23 15:47 Penicillins Allergy Swelling Verified 02/27/23 15:47 Antihistamines - Alkylamine AdvReac Other Verified 02/27/23 15:47 Family History Grandfather Throat cancer Surgical History History of dilation and curettage History of total vaginal hysterectomy History of tubal ligation Hx of cystoscopy Social History household members: spouse current occupational status: employed Smoking Status: Never smoker ROS ROS ED Constitutional Constitutional ED: Denies chills or fever(s) Eyes Eyes: Denies blurry vision or change in vision ENT ENT ED: Denies rhinorrhea or sore throat Cardiovascular Cardiovascular: Reports as per HPI, chest pain and palpitations Respiratory/Chest Respiratory/Chest: Denies cough or dyspnea Gastrointestinal Gastrointestinal: Denies nausea or vomiting Genitourinary Genitourinary ED: Denies dysuria or hematuria Musculoskeletal Musculoskeletal: Reports back pain; Denies neck pain Integumentary Denies abscess or rash Neurologic Neurologic: Denies headache(s) or weakness Allergic/Immunologic Allergic/Immunologic ED: Denies mouth swelling or urticaria EXAM Physical Exam Const Vital Signs: 10/15/23 10:26 10/15/23 10:50 10/15/23 11:25 Temperature 97.9 F Temperature Source Temporal Pulse Rate 71 54 L Respiratory Rate 15 16 Respiratory Effort Normal Non-Labored Blood Pressure 192/98 H 140/71 H Blood Pressure Mean 129 94 Pulse Ox 100 99 Oxygen Delivery Method Room Air Room Air 10/15/23 11:39 10/15/23 13:28 Temperature Temperature Source Pulse Rate 52 L 51 L Respiratory Rate 7 L 12 Respiratory Effort Blood Pressure 140/71 H 123/73 H Blood Pressure Mean 94 89 Pulse Ox 97 99 Oxygen Delivery Method Room Air Room Air Positive well nourished, well developed and obese General Appearance ED: well developed and NAD Nutritional Appearance: obese HEENT Reports moist mucous membranes Neck supple and no JVD Chest Wall inspection of chest normal and palpation of chest normal Resp normal respiratory effort and clear to auscultation bilaterally Cardio regular rate and regular rhythm GI soft to palpation, non-tender and non-distended Extremity normal to inspection General Extremety ED: Negative for edema or tenderness General Extremity: Negative for edema Neuro oriented x3, CN's II-XII intact bilaterally and no sensory deficits noted Sensorium / Orientation: awake and alert Motor Exam: strength 5/5 throughout Psych mental status grossly normal Heart Score History: Slightly/Non-Suspicious ECG: Nonspecific Repolarization Age: >45 - <65 years Risk Factors: 1 or 2 Risk Factors Troponin: </= Normal Limit Score: 3 MDM MDM MDM Narrative Medical decision making narrative: Differential diagnosis includes cardiac dysrhythmia, cardiac ischemia, pulmonary embolism, pneumonia, pneumothorax, musculoskeletal pain, and anxiety. EKG will be obtained to assess for cardiac dysrhythmia and cardiac ischemia. Chest x-ray will be obtained to assess for pneumonia and pneumothorax. CBC will be obtained to assess for leukocytosis and anemia. Basic metabolic profile will be obtained to assess for electrolyte abnormality and renal function. High-sensitivity troponin will be obtained to assess for cardiac ischemia. 2-hour repeat high-sensitivity troponin will be obtained to assess for ongoing cardiac ischemia. D-dimer will be obtained to assess for pulmonary embolism. Lab Data Attestation: I reviewed the patient's lab results. Lab results narrative: CBC was reviewed and was within normal limits. Basic metabolic profile was reviewed and was within normal limits. Initial high-sensitivity troponin was reviewed and was normal at 4. D-dimer was reviewed and was normal at 0.34. 2-hour repeat high-sensitivity troponin was reviewed and was normal at 7. Labs: Laboratory Results - last 24 hr 10/15/23 10/15/23 10:35 12:20 WBC 5.5 RBC 4.56 Hgb 13.7 Hct 41.6 MCV 91.2 MCH 30.0 MCHC 32.9 RDW Std Deviation 42.2 RDW Coeff of Rell 12.7 Plt Count 257 MPV 9.7 Immature Gran % (Auto) 0.200 Neut % (Auto) 56.1 Lymph % (Auto) 34.2 [place] % (Auto) 5.3 Eos % (Auto) 3.7 Baso % (Auto) 0.5 Absolute Neuts (auto) 3.1 Absolute Lymphs (auto) 1.87 Nucleated RBC % 0 D-Dimer Quant (PE/DVT) 0.34 Sodium 139 Potassium 3.9 Chloride 108 H Carbon Dioxide 31.0 Anion Gap 0 L BUN 14 Creatinine 0.91 Estim Creat Clear Calc 49.58 Est GFR (MDRD) Af Amer 82 Est GFR (MDRD) Non-Af 68 BUN/Creatinine Ratio 15.4 Glucose 105 Calcium 9.3 Troponin I High Sens 4 7 Radiography Diagnostic Testing: Clinical Impression(s) from Imaging Studies Chest X-Ray 10/15/23 11:02 IMPRESSION: No radiographic evidence of acute cardiopulmonary disease. Electronically Signed: Vivienne Todd MD at 11:41 EST , Portable 1 view chest x-ray was obtained. On my independent interpretation, lung romano are clear. There is normal cardiac silhouette. Bony thorax is normal. There is no acute process noted. Radiologist also interpreted the x-ray and agrees. EKG Initial EKG: Attestation: I personally reviewed and interpreted this EKG as follows: Interpretation: Sinus Bradycardia (58) and Non-Specific ST Changes Comments: EKG was obtained. On my independent interpretation, it showed a sinus bradycardia with a rate of 58. NE interval, QRS interval, and QTc intervals were all normal. [place] was normal. There are nonspecific ST-T wave changes. Prior EKG tracings: available for review Prior: Unchanged (08/02/2022) Treatment and Re-Evaluation :: Patient had aspirin prior to arrival. Patient was advised of her findings. Patient has a HEART score of 3. Patient was advised that this is low risk for acute cardiac event. Patient was instructed to follow-up with her primary care physician in 3 to 5 days for further evaluation. Patient was instructed to return if worse in any way. Patient understood and was agreeable with the plan. All questions were answered. Discharge Plan Triage Chief Complaint: Chest Pain ED Provider: Quan Nunez Dx/Rx/DC Orders Clinical Impression: Chest pain of uncertain etiology, Hypertension Instructions: ED Chest Pain, Uncertain Cause Prescriptions: No Action propranolol 80 MG tablet 80 mg PO QHS Patient Comments: EXTENDED RELEASE. for blood pressure/heart Primary Care Provider: Rosette Wynne Referrals: Rosette Wynne DO [Primary Care Provider] - 3-5 Days Disposition Disposition: Home, Self Care
--- NOTE | 2023-10-15 11:02 | EKG12_ITS ---
Test Reason : cp Blood Pressure : / mmHG Vent. Rate : 058 BPM Atrial Rate : 058 BPM P-R Int : 132 ms QRS Dur : 088 ms QT Int : 410 ms P-R-T Axes : 025 011 010 degrees QTc Int : 402 ms Sinus bradycardia Minimal voltage criteria for LVH, may be normal variant ( R in aVL ) Nonspecific ST abnormality Abnormal ECG Confirmed by JULES LAMAR, SCOTTIE ([id number]), fashion editor WONG STEWARD ([id number]) on 10/17/2023 1:17:09 PM Referred By: Marie Confirmed By:SCOTTIE VICENTE MD
--- NOTE | 2023-10-15 11:02 | RAD_ITS ---
INDICATION: chest pain EXAMINATION/TECHNIQUE: X-RAY - XR Chest 1 View COMPARISON: August 02, 2022 FINDINGS: LINES/DEVICES: None. LUNGS: No consolidation, edema or effusion. No pneumothorax. MEDIASTINUM AND CARDIOVASCULAR STRUCTURES: Cardiac silhouette not enlarged. Central airways and mediastinal contour are unremarkable. BONES AND SOFT TISSUES: Unremarkable. RAD/Chest 1 View (Portable) IMPRESSION: No radiographic evidence of acute cardiopulmonary disease. Electronically Signed: Vivienne Todd MD at 11:41 EST ,
[2023-10-15 11:25] VITALS: BP 140/71; PULSE 54; RESP 16; O2SAT 99
[2023-10-15 11:27] LABS: Absolute Lymphocyte Count 1.87 X10^3/uL (0.83-4.51); Absolute Neutrophil Count 3.1 X10^3/uL (2.0-7.7); Basophil# 0.03 X10^3/uL; Basophil% 0.5 % (0-1); Eosinophils% 3.7 % (0-5); Hematocrit 41.6 % (37-47); Hemoglobin 13.7 g/dL (12.0-15.0); Lymphocyte # 1.87 X10^3/ul (0.83-4.51); Lymphocyte % 34.2 % (19-41); Mean Corp Hgb Conc 32.9 g/dL (32-36); Mean Corpuscular Volume 91.2 fL (81-99); Mean Platelet Vol. 9.7 fl (6.2-12.0); Monocyte# 0.29 X10^3/uL; Monocyte% 5.3 % (0-10); NRBC Flagged by Analyzer 0 % (0-5); Neutrophil # 3.06 X10^3/uL (2.7-7.7); Neutrophil % 56.1 % (47-70); Platelet Count 257 K/mm3 (150-450); RBC Distribution Width CV 12.7 % (11.6-14.6); RBC Distribution Width SD 42.2 fl (35.1-43.9); Red Blood Count 4.56 M/mm3 (4.2-5.4); White Blood Count 5.5 K/mm3 (4.4-11.0)
[2023-10-15 11:39] VITALS: BP 140/71; PULSE 52; RESP 7; O2SAT 97
[2023-10-15 11:40] LABS: Anion Gap 0 (5-15); BUN 14 mg/dL (7-18); BUN/Creat Ratio 15.4 RATIO (10-20); Calcium,Total 9.3 mg/dL (8.5-10.1); Chloride 108 mmol/L (98-107); Creatinine, Serum 0.91 mg/dL (0.55-1.02); EST Glomerular Filtration Rate 68 mL/min (>60); Est Glom Filt Rate - Afr Amer 82 mL/min (>60); Estimated Creatinine Clearance 49.58 ml/min; Glucose 105 mg/dL (74-106); Potassium 3.9 mmol/L (3.5-5.1); Sodium Level 139 mmol/L (136-145); Troponin-I HS (w/2H Reflex) 4 pg/mL (3.0-54.0)
[2023-10-15 12:00] LABS: D-Dimer Quantitative (DVT/PE) 0.34 FEU/ug/m (0.27-0.49)
[2023-10-15 13:17] LABS: Reflex Troponin-HS? (from REC) Y
[2023-10-15 13:28] VITALS: BP 123/73; PULSE 51; RESP 12; O2SAT 99
[2023-10-15 13:47] LABS: Troponin-I HS 7 pg/mL (3.0-54.0)
[2023-10-15 14:16] VITALS: BP 129/80; PULSE 50; RESP 16; O2SAT 99
== END 2023-10-15 14:21 | disposition home or self-care (01) ==
PROVIDERS: Emergency Provider Emergency Medicine; PCP Internal Medicine; Visit Provider Emergency Medicine
DX: R07.9 Chest pain, unspecified (principal); I10 Essential (primary) hypertension
CPT/HCPCS: 71045; 80048; 84484; 85025; 85379; 93005; 99283; A4216

== ENCOUNTER → 2024-05-18 | Outpatient (CLI) | payer OTHER, SELFPAY ==
--- NOTE | 2024-05-18 07:14 | US_ITS ---
STUDY: ABDOMINAL ULTRASOUND - RIGHT UPPER QUADRANT REASON FOR VISIT: Female, 59 years old RUQ pain TECHNIQUE: Ultrasound evaluation of the right upper quadrant was performed with real-time and static aguirre-scale imaging. TECHNICAL QUALITY: Adequate. COMPARISON: Comparison is made with the prior examination March 17, 2022. FINDINGS: Liver: The liver measures 14.3 cm. There is normal echogenicity of the liver. The bile ducts are within normal limits. There is hepatic color flow. The direction of portal flow is hepatopetal. There is no demonstrated mass lesion. Gallbladder: Normal distended gallbladder. The gallbladder wall measures 1.5 mm. There is a negative sonographic Mercedes''s sign. There is no pericholecystic fluid. There are no gallstones. Common Bile Duct (C.B.D.): The common bile duct measures 4 mm. Pancreas: Normal size of the head, body and tail of the pancreas. There is increased echogenicity of the pancreas. There is no demonstrated pancreatic mass or cyst. Right Kidney: Normal size of the right kidney. The right kidney measures 10.4 cm x 4.3 cm x 3.8 cm. Normal renal cortex. The right cortex measures 1.1 cm. There is no demonstrated renal mass or cyst. There is no right hydronephrosis. US/Abdomen Limited IMPRESSION: Normal right upper quadrant ultrasound examination. Electronically Signed: Cameron Mckay MD at 8:23 EDT ,
== END | disposition home or self-care (01) ==
PROVIDERS: PCP Internal Medicine; Referring Provider Internal Medicine; Visit Provider Internal Medicine
DX: R10.11 Right upper quadrant pain (principal)
CPT/HCPCS: 76705

== ENCOUNTER 2024-06-16 09:48 | Emergency (ER) | payer OTHER, SELFPAY ==
[2024-06-16 09:48] VITALS: BP 178/91; PULSE 55; RESP 19; TEMP 35.9; O2SAT 100; BMI 33.0
--- NOTE | 2024-06-16 10:29 | ED.VIS.GI ---
HPI HPI - GI History of Present Illness Chief Complaint: Abd Pain Detail of Chief Complaint: 5-day history of constipation. Informant: patient Abdominal Pain/Flank Pain Onset: Days Context: Gradual Onset Timing: Continuous Quality: Cramping Current Severity: Mild Maximum Severity: Mild Worsened by: Nothing Relieved by: Nothing Nausea/Vomiting/Emesis GI Symptom: Positive for Nausea Onset: Days Severity: Mild Diarrhea/Melena/Hematochezia GI Symptom: Negative for Melena Stool Quality: Positive for Loose Severity: Mild Associated Symptoms Associated Symptoms: Negative for Dysuria, Frequency, Hematuria or Urgency Narrative Narrative: 59-year-old female history of constipation. No significant prior abdominal surgeries. States she has not had a significant bowel movement for 5 days. Now she is having some loose stools. Denies any dysuria. No fever. She just feels full and has pain around her rectal area. Prior similar symptoms: Yes Recent Illness/Hospitalization: No PFSH PFSH Medical History Wears glasses Cancer Anxiety Anemia Injury of back Back pain Migraine headache Injury of head and neck History of IBS Gastric reflux Non-smoker History of pain when walking History of stress test Cardiology follow-up encounter History of irregular heartbeat Basal cell carcinoma of skin, unspecified B12 deficiency Vitamin D deficiency, unspecified Kidney stone Tachycardia HTN (hypertension) Home Medications ?Medication ?Instructions ?Recorded ?Last Taken ?Type propranolol 80 mg tablet 80 mg PO QHS 09/12/13 11/15/22 00:00 History aspirin 325 mg tablet 325 mg PO DAILY PRN 02/18/24 Unknown History famotidine 20 mg tablet (Pepcid AC) 20 mg PO DAILY 02/18/24 Unknown History Allergy/AdvReac Type Severity Reaction Status Date / Time clindamycin Allergy Nausea/Vom/ Verified 06/16/24 09:51 Diarrhea codeine Allergy Swelling Verified 06/16/24 09:51 hydrocodone (Hydrocodone) Allergy Swelling Verified 06/16/24 09:51 oseltamivir (From Tamiflu) Allergy Other Verified 06/16/24 09:51 Penicillins Allergy Swelling Verified 06/16/24 09:51 Antihistamines - Alkylamine AdvReac Other Verified 06/16/24 09:51 Family History Grandfather Throat cancer Surgical History Hx of cystoscopy History of tubal ligation History of total vaginal hysterectomy History of dilation and curettage Social History household members: spouse current occupational status: employed Smoking Status: Never smoker ROS ROS ED ROS Narrative Abdominal cramping suprapubic region. Constipation. Constitutional Constitutional ED: Denies fever(s) ENT ENT ED: Denies ear pain Cardiovascular Cardiovascular: Denies chest pain Respiratory/Chest Respiratory/Chest: Denies cough Gastrointestinal Gastrointestinal: Reports abdominal pain, constipation and nausea; Denies diarrhea, melena or vomiting Genitourinary Genitourinary ED: Denies dysuria or hematuria Musculoskeletal Musculoskeletal: Denies arthralgias or back pain Integumentary Denies abscess Neurologic Neurologic: Denies headache(s) Psychiatric Psychiatric: Denies anxiety Endocrine Endocrinology: Denies polydipsia Hematologic/Lymphatic Hematologic/Lymphatic: Denies easy bleeding Allergic/Immunologic Allergic/Immunologic ED: Denies mouth swelling EXAM Physical Exam Narrative Exam Narrative: 59-year-old female. Vital signs stable afebrile. H EENT exam unremarkable. Lungs clear. Heart regular rhythm rate about 60 no murmur. Abdomen soft, nontender, nondistended normal bowel sounds without peritoneal signs. Const Vital Signs: 06/16/24 09:48 06/16/24 11:48 Temperature 96.7 F L Temperature Source Temporal Pulse Rate 55 L 61 Respiratory Rate 19 H 16 Blood Pressure 178/91 H 138/74 H Blood Pressure Mean 120 95 Pulse Ox 100 100 Oxygen Delivery Method Room Air Room Air Positive well nourished and well developed; Negative for cachectic or contractures General Appearance ED: well developed; Negative for cachectic, contractures or pallor Nutritional Appearance: Negative for cachectic HEENT Reports moist mucous membranes normocephalic and atraumatic; Negative for trauma or tenderness Eyes PERRL and EOMs intact bilaterally General Eye ED: Negative for pale conjunctiva or scleral icterus Neck no lymphadenopathy, supple and no JVD General: Negative for tenderness Carotids: Negative for other Resp normal respiratory effort and clear to auscultation bilaterally Effort and Inspection: Negative for respiratory distress Auscultation: Negative for rales, rhonchi or wheezes Cardio regular rate, regular rhythm, S1 normal heart sound, S2 normal heart sound and no murmurs GI non-tender, non-distended and no masses Inspection: Negative for abdominal distention Auscultation: normoactive bowel sounds Palpation: soft; Negative for tender, guarding, hernia, mass, pulsatile mass or rebound tenderness present Back/Spine no CVA tenderness Extremity full ROM General Extremety ED: Negative for edema or tenderness General Extremity: Negative for edema Neuro CN's II-XII intact bilaterally and moves all extremities Sensorium / Orientation: alert Motor Exam: strength 5/5 throughout Psych mental status grossly normal and thought process normal Mood & Affect: Negative for depressed, anxious or tearful Skin no wounds General Skin Exam: Negative for jaundice or pallor Lesions: no lesions Rashes: no rashes Trauma: Negative for abrasion Nails: Negative for discolored MDM MDM MDM Narrative Medical decision making narrative: 59-year-old female with constipation. KUB being obtained. No peritoneal signs. Clinically none Jerri appendicitis or gallbladder disease. She has had it recently evaluated. KUB showed constipation with stool throughout the rectum and colon. She also had a left upper quadrant calcified mass. I suspect there is a calcified spleen from prior trauma. I am obtaining a CT. She will be started on GoLytely for constipation. Screening labs are being obtained. I have discussed this all with the patient. The CAT scan showed an old injury to her spleen and she had an injury 12 years old. No acute processes. She has been drinking GoLytely and had a large bowel movement here is feeling better. She is comfortable being discharged to home to use GoLytely at home. Repeat abdominal exam at 1 PM is benign. Lab Data Attestation: I reviewed the patient's lab results. Lab results narrative: CBC unremarkable. White count 9. H&H 12 and 37. Platelets 198. Chemistry shows sodium 134. Gap 4. Normal BUN and creatinine. Glucose 133. Liver enzymes normal. KUB showed increased stool consistent with constipation and a left upper quadrant calcified mass suspect calcified spleen. Labs: Laboratory Results - last 24 hr 06/16/24 11:35 WBC 9.3 RBC 4.09 L Hgb 12.2 Hct 37.4 MCV 91.4 MCH 29.8 MCHC 32.6 RDW Std Deviation 41.5 RDW Coeff of Rell 12.6 Plt Count 198 MPV 9.0 Immature Gran % (Auto) 0.400 Neut % (Auto) 88.1 H Lymph % (Auto) 7.3 L [place] % (Auto) 3.4 Eos % (Auto) 0.6 Baso % (Auto) 0.2 Absolute Neuts (auto) 8.2 H Absolute Lymphs (auto) 0.68 L Nucleated RBC % 0 Sodium 134 L Potassium 3.5 Chloride 103 Carbon Dioxide 27.0 Anion Gap 4 L BUN 13 Creatinine 0.72 Estim Creat Clear Calc 78.91 Est GFR (MDRD) Af Amer 107 Est GFR (MDRD) Non-Af 89 BUN/Creatinine Ratio 18.1 Glucose 133 H Calcium 8.2 L Total Bilirubin 0.40 AST 12 L ALT 17 Alkaline Phosphatase 73 Total Protein 6.5 Albumin 3.1 L Globulin 3.4 Albumin/Globulin Ratio 0.9 Radiography Diagnostic Testing: Clinical Impression(s) from Imaging Studies KUB X-Ray 06/16/24 10:40 IMPRESSION: 1. Non-obstructive bowel gas pattern. 2. Calcified left upper quadrant mass or cyst. Electronically Signed: Augie Jarvis MD at 11:03 EDT , Abdomen/Pelvis CT 06/16/24 11:13 IMPRESSION: 1. Nonspecific fluid-filled small bowel loops and mild thickening of the colon could reflect enterocolitis. 2. Fecal retention and rectosigmoid colon with mild thickening of the rectal wall and presacral stranding and fluid could reflect sequela proctitis. 3. Large calcified splenic cystic lesion as described above could be due to previous infection, posttraumatic pseudocyst or epidermoid cyst. 4. Small hiatal hernia. Electronically Signed: Augie Jarvis MD at 12:28 EDT , Discharge Plan Triage Chief Complaint: Abd Pain ED Provider: Brian Amado Dx/Rx/DC Orders Clinical Impression: Constipation, History of blunt trauma to abdomen Instructions: ED Constipation (Adult) Prescriptions: No Action aspirin 325 mg tablet 325 mg PO DAILY PRN famotidine [Pepcid AC] 20 mg tablet 20 mg PO DAILY propranolol 80 MG tablet 80 mg PO QHS Patient Comments: EXTENDED RELEASE. for blood pressure/heart Primary Care Provider: Rosette Wynne Referrals: Rosette Wynne, [Primary Care Provider] - As Needed Activity Restrictions/Additional Instructions: To treat your constipation plenty of fluids. Fruit vegetable and fiber. Stool softener as needed. Today use the [employer] 116 ounce glass every hour as needed. Once you feel comfortable you probably do not need to keep using it. You can save it in case you need it for another episode of constipation. You also have an old injury to your spleen that is calcified. It is from the trauma when you were 12 years old. Print Language: Slovak Disposition Disposition: Home, Self Care
--- NOTE | 2024-06-16 10:40 | RAD_ITS ---
INDICATION: constipation EXAMINATION/TECHNIQUE: X-RAY - XR Abdomen 1 View COMPARISON: No relevant prior comparison study available FINDINGS: BOWEL GAS PATTERN: Non-obstructive. No bowel or stomach distention. FREE AIR: Not assessed on a single supine view. ORGANOMEGALY: Not seen. CALCIFICATIONS: Large well-defined calcified left upper quadrant mass measuring about 11 cm likely splenic. LOWER CHEST: No acute pathology. BONES AND SOFT TISSUES: No acute pathology. RAD/Abdomen Single View IMPRESSION: 1. Non-obstructive bowel gas pattern. 2. Calcified left upper quadrant mass or cyst. Electronically Signed: Augie Jarvis MD at 11:03 EDT ,
--- NOTE | 2024-06-16 11:13 | CT_ITS ---
STUDY: CT ABDOMEN AND PELVIS WITH CONTRAST REASON FOR EXAM: Female, 59 years old. Constipation and LUQ Calcified mass ?? RADIATION DOSAGE (If Supplied By Facility): CTDIvol = ( 19.66 ) mGy, DLP = ( 995.64 ) mGycm TECHNIQUE: IV 100mL Isovue-370 was administered. Transaxial images were obtained from the dome of the diaphragm to the symphysis pubis. Multiplanar coronal and sagittal images were reformatted. The protocol utilizes one or more of the following dose reduction techniques: automated exposure control, adjustment of mA and/or kV according to patient size,and/or use of iterative reconstruction technique. COMPARISON: No relevant prior comparison study available FINDINGS: The visualized lung bases are unremarkable. The visualized portions of the heart are within normal limits. Normal liver. Normal gallbladder and extrahepatic biliary system. Rim calcified cystic lesion in the spleen measuring about 9 cm Normal pancreas. Normal bilateral adrenal glands. There is a small hiatal hernia. Nonspecific fluid-filled small bowel loops. Mild thickening of the colon concerning for colitis. Fecal retention and rectosigmoid colon with presacral stranding and fluid could reflect stercoral proctitis. The appendix is visualized and appears normal. No evidence of abdominal aortic aneurysm No retroperitoneal adenopathy. Right extrarenal pelvis. No evidence of hydronephrosis. Normal urinary bladder. There is absence of the uterus consistent with a prior hysterectomy. There is a small umbilical hernia containing fat. Grade 1 anterolisthesis of L4 over L5. Degenerative changes. CT/Abdomen/Pelvis W IV Cont ONLY IMPRESSION: 1. Nonspecific fluid-filled small bowel loops and mild thickening of the colon could reflect enterocolitis. 2. Fecal retention and rectosigmoid colon with mild thickening of the rectal wall and presacral stranding and fluid could reflect sequela proctitis. 3. Large calcified splenic cystic lesion as described above could be due to previous infection, posttraumatic pseudocyst or epidermoid cyst. 4. Small hiatal hernia. Electronically Signed: Augie Jarvis MD at 12:28 EDT ,
[2024-06-16 11:45] LABS: Absolute Lymphocyte Count 0.68 X10^3/uL (0.83-4.51); Absolute Neutrophil Count 8.2 X10^3/uL (2.0-7.7); Basophil# 0.02 X10^3/uL; Basophil% 0.2 % (0-1); Eosinophil# 0.06 X10^3/uL; Eosinophils% 0.6 % (0-5); Hematocrit 37.4 % (37-47); Hemoglobin 12.2 g/dL (12.0-15.0); Lymphocyte # 0.68 X10^3/ul (0.83-4.51); Lymphocyte % 7.3 % (19-41); Mean Corp Hgb Conc 32.6 g/dL (32-36); Mean Corpuscular Hgb 29.8 pg (27.0-32.0); Mean Corpuscular Volume 91.4 fL (81-99); Monocyte# 0.32 X10^3/uL; Monocyte% 3.4 % (0-10); NRBC Flagged by Analyzer 0 % (0-5); Neutrophil # 8.22 X10^3/uL (2.7-7.7); Neutrophil % 88.1 % (47-70); Platelet Count 198 K/mm3 (150-450); RBC Distribution Width CV 12.6 % (11.6-14.6); RBC Distribution Width SD 41.5 fl (35.1-43.9); Red Blood Count 4.09 M/mm3 (4.2-5.4); White Blood Count 9.3 K/mm3 (4.4-11.0)
[2024-06-16 11:48] VITALS: BP 138/74; PULSE 61; RESP 16; O2SAT 100
[2024-06-16 12:01] LABS: ALB/GLOB Ratio 0.9 RATIO (0.9-2.4); AST(SGOT) 12 U/L (15-37); Alanine Aminotransfer ALT/SGPT 17 U/L (13-56); Albumin, Serum 3.1 g/dL (3.2-5.0); Alkaline Phosphatase 73 U/L (45-117); Anion Gap 4 (5-15); BUN 13 mg/dL (7-18); BUN/Creat Ratio 18.1 RATIO (10-20); Calcium,Total 8.2 mg/dL (8.5-10.1); Chloride 103 mmol/L (98-107); Creatinine, Serum 0.72 mg/dL (0.55-1.02); EST Glomerular Filtration Rate 89 mL/min (>60); Est Glom Filt Rate - Afr Amer 107 mL/min (>60); Estimated Creatinine Clearance 78.91 ml/min; Globulin 3.4 g/dL (2.2-4.2); Glucose 133 mg/dL (74-106); Potassium 3.5 mmol/L (3.5-5.1); Protein, Total 6.5 g/dL (6.4-8.2); Sodium Level 134 mmol/L (136-145)
[2024-06-16 13:00] VITALS: BP 150/91; PULSE 72; RESP 16; TEMP 36.6; O2SAT 98
== END 2024-06-16 13:32 | disposition home or self-care (01) ==
PROVIDERS: Emergency Provider Emergency Medicine; PCP Internal Medicine; Visit Provider Emergency Medicine
DX: R10.9 Unspecified abdominal pain (principal); K59.00 Constipation, unspecified; I10 Essential (primary) hypertension; Z79.899 Other long term (current) drug therapy; Z79.82 Long term (current) use of aspirin; K21.9 Gastro-esophageal reflux disease without esophagitis; Z98.51 Tubal ligation status; Z90.710 Acquired absence of both cervix and uterus; Z87.828 Personal history of other (healed) physical injury and trauma
CPT/HCPCS: 74018; 74177; 80053; 85025; 99282; Q9967; A4216

== ENCOUNTER 2024-11-14 16:36 | Emergency (ER) | payer OTHER, SELFPAY ==
[2024-11-14 16:36] VITALS: BP 192/96; PULSE 68; RESP 16; TEMP 36.4; O2SAT 100; BMI 34.0
[2024-11-14 17:01] VITALS: BP 163/84; PULSE 56; RESP 14; O2SAT 100
[2024-11-14 17:01] LABS: Bacteria 0 SEEN /hpf (None Seen); Mucous, Urine 0 SEEN /hpf (<or=2+)
--- NOTE | 2024-11-14 17:06 | ED.RN ---
This RN was unsuccessful with an IV start, blood was drawn though. Dr Almaguer stated patient did not need an IV as long as she got the blood work.
--- NOTE | 2024-11-14 17:14 | EDS_ITS ---
HPI History of Present Illness Chief Complaint: Hypertension Detail of Chief Complaint: Elevated blood pressure reading at Dr. Álvarez's office Informant: patient Onset/Context/Timing Onset: - (Elevated blood-pressure reading at physicians office) Context: - (Unknown) Timing: Continuous Quality: Elevated blood pressure with ringing in her ears and pressure in her head Location: Cardiovascular Current Severity: Moderate Maximum Severity: Moderate Worsened by: Possibly nerves per patient Relieved by: Nothing Associated Symptoms Associated Symptoms: No other symptoms Narrative Narrative: Patient is a 59-year-old woman with history of hypertension for the past 20 years. She is on propranolol. She is on no other medication for her blood pressure. She denies headache, double vision blurred vision or loss of vision. She states she intermittently has blurred vision and that has been an issue for some time. She denies trouble with speech or swallowing. She does report ringing or ears. Denies decreased hearing. She denies neck pain. She denies paresthesia, anesthesia or motor gross upper or lower extremity. She denies cardiac or respiratory symptoms. She denies abdominal pain, nausea or vomiting. She denies problems with balance or coordination. Patient reports compliance with her blood pressure medicine Prior similar symptoms: Yes Recent Illness/Hospitalization: No PFSH PFSH Medical History Wears glasses Cancer Anxiety Anemia Injury of back Back pain Migraine headache Injury of head and neck History of IBS Gastric reflux Non-smoker History of pain when walking History of stress test Cardiology follow-up encounter History of irregular heartbeat Basal cell carcinoma of skin, unspecified B12 deficiency Vitamin D deficiency, unspecified Kidney stone Tachycardia HTN (hypertension) Home Medications ?Medication ?Instructions ?Recorded ?Last Taken ?Type propranolol 80 mg tablet 80 mg PO QHS 09/12/13 11/15/22 00:00 History aspirin 325 mg tablet 325 mg PO DAILY PRN 02/18/24 Unknown History famotidine 20 mg tablet (Pepcid AC) 20 mg PO DAILY 02/18/24 Unknown History Allergy/AdvReac Type Severity Reaction Status Date / Time clindamycin Allergy Nausea/Vom/ Verified 11/14/24 16:38 Diarrhea codeine Allergy Swelling Verified 11/14/24 16:38 hydrocodone (Hydrocodone) Allergy Swelling Verified 11/14/24 16:38 oseltamivir (From Tamiflu) Allergy Other Verified 11/14/24 16:38 Penicillins Allergy Swelling Verified 11/14/24 16:38 Antihistamines - Alkylamine AdvReac Other Verified 11/14/24 16:38 Family History Grandfather Throat cancer Surgical History Hx of cystoscopy History of tubal ligation History of total vaginal hysterectomy History of dilation and curettage Social History household members: spouse current occupational status: employed Smoking Status: Never smoker ROS ROS ED Constitutional Constitutional ED: Denies chills, fever(s) or subjective Eyes Eyes: Reports blurry vision bilateral (As documented in the HPI.); Denies change in vision or diplopia ENT ENT ED: Reports other Details: Tinnitus ; Denies ear pain, rhinorrhea or sore throat Cardiovascular Cardiovascular: Denies chest pain, palpitations or racing heartbeat Respiratory/Chest Respiratory/Chest: Denies cough, dyspnea or dyspnea on exertion Gastrointestinal Gastrointestinal: Denies abdominal pain, nausea or vomiting Genitourinary Genitourinary ED: Denies dysuria, hematuria or urinary frequency Musculoskeletal Musculoskeletal: Denies arthralgias, back pain or neck pain Neurologic Neurologic: Denies headache(s), paresthesias or weakness Psychiatric Psychiatric: Reports anxiety Endocrine Endocrinology: Denies cold intolerance or heat intolerance Hematologic/Lymphatic Hematologic/Lymphatic: Reports systems reviewed and no addt'l complaints, except as documented EXAM Physical Exam Const Vital Signs: 11/14/24 16:36 11/14/24 16:53 11/14/24 17:01 Temperature 97.6 F L Temperature Source Oral Pulse Rate 68 56 L Respiratory Rate 16 14 Respiratory Effort Normal Non-Labored Respiratory Pattern Normal Blood Pressure 192/96 H Blood Pressure Mean 128 Pulse Ox 100 100 Oxygen Delivery Method Room Air 11/14/24 17:01 11/14/24 17:15 Temperature Temperature Source Pulse Rate 57 L Respiratory Rate 14 Respiratory Effort Respiratory Pattern Blood Pressure 163/84 H 173/87 H Blood Pressure Mean 110 111 Pulse Ox 100 Oxygen Delivery Method Blood pressure as of 1812 was 150/72. This is without treatment. Positive well nourished and well developed Constitutional Narrative: BMI is 34. General Appearance ED: well developed and NAD; Negative for cyanotic or diaphoretic HEENT Reports moist mucous membranes HEENT Narrative: Head is atraumatic normocephalic. Ears normal. TMs normal. Nares patent. Uvula midline. No deviation with protrusion. Eyes PERRL and EOMs intact bilaterally Eyes Narrative: There is no nystagmus. General Eye ED: Negative for pale conjunctiva or scleral icterus Neck no lymphadenopathy, supple and no JVD Neck Narrative: There is no carotid bruits. Chest Wall inspection of chest normal and palpation of chest normal Resp normal respiratory effort and clear to auscultation bilaterally Cardio regular rate, regular rhythm, S1 normal heart sound, S2 normal heart sound and no murmurs GI normal to inspection, nondistended, normoactive bowel sounds, non-tender, non- distended and no masses; Negative for hepatosplenomegaly Back/Spine no CVA tenderness Extremity normal to inspection General Extremety ED: Negative for edema or tenderness General Extremity: Negative for edema Neuro oriented x3, CN's II-XII intact bilaterally and no sensory deficits noted Neuro Narrative: There is no dysmetria. Gait was observed and normal. Bicep, brachialis, patella and ankle reflex are 2+ and symmetric. There is no Babinski or clonus noted. Sensorium / Orientation: alert Motor Exam: strength 5/5 throughout Psych Mood & Affect: anxious Skin no rashes or lesions noted, no wounds and skin turgor normal General Skin Exam: elasticity normal MDM MDM MDM Narrative Medical decision making narrative: Patient with asymptomatic blood pressure. Will obtain BMP and UA to assess for elevated BUN/creatinine, proteinuria, hematuria. Also to see if there is any evidence of callus. Will monitor her blood pressure. Nurse informing that second blood pressure was 162 systolic. This was without intervention. History & Record Review Additional record(s) reviewed:: Prior outpatient record (Urgent care for poison howard. Screening for malignancy by Dr. Ann October 2022.) and Prior ED visit (May 2024 for constipation. Chest pain of unknown etiology September 2023. Bite wound January 2023.) Lab Data Attestation: I reviewed the patient's lab results. Lab results narrative: Macro urinalysis is normal. Labs: Laboratory Results - last 24 hr 11/14/24 16:54 Sodium 139 Potassium 4.1 Chloride 104 Carbon Dioxide 27.0 Anion Gap 8 BUN 10 Creatinine 0.79 Estim Creat Clear Calc 73.02 Est GFR (MDRD) Af Amer 96 Est GFR (MDRD) Non-Af 80 BUN/Creatinine Ratio 12.7 Glucose 97 Calcium 9.2 Urine Color Yellow Urine Clarity Clear Urine pH 7.0 Ur Specific [place] 1.005 Urine Protein Negative Urine Glucose (UA) Normal Urine Ketones Negative Urine Occult Blood Negative Urine Nitrite Negative Urine Bilirubin Negative Urine Urobilinogen Normal Ur Leukocyte Esterase Negative Urine RBC 0-5 SEEN Urine WBC 0-5 SEEN Ur Squamous Epith Cells 0-5 SEEN Ur Transition Epith Cell 0-5 SEEN Urine Bacteria 0 SEEN Urine Mucus 0 SEEN Patient was informed of her laboratory results which were unremarkable. There is no evidence of endorgan dysfunction. Plan is to discharge home and have her blood pressure rechecked in 1 [address] Carlo Bowen. If her pressure remains elevated she will need a second agent. Discharge Plan Triage Chief Complaint: Hypertension ED Provider: Norbert Almaguer Dx/Rx/DC Orders Clinical Impression: Accelerated essential hypertension, GERD (gastroesophageal reflux disease), BMI 34.0-34.9,adult Instructions: ED Hypertension, Established Prescriptions: No Action aspirin 325 mg tablet 325 mg PO DAILY PRN famotidine [Pepcid AC] 20 mg tablet 20 mg PO DAILY propranolol 80 MG tablet 80 mg PO QHS Patient Comments: EXTENDED RELEASE. for blood pressure/heart Primary Care Provider: Rosette Wynne Referrals: Rosette Wynne DO [Primary Care Provider] - 1-2 Weeks Activity Restrictions/Additional Instructions: Call for follow-up appointment to have blood pressure checked in 1 to 2 weeks. Print Language: Libyan Disposition Disposition: Home, Self Care
[2024-11-14 17:15] VITALS: BP 173/87; PULSE 57; RESP 14; O2SAT 100
[2024-11-14 17:21] LABS: Color, Urine Yellow (Yellow); Glucose, Dipstick Normal (Normal); Ketone-Dipstick Negative (Negative); Leukocyte Esterase-Dipstick Negative /ul (Negative); Nitrite-Dipstick Negative (Negative); Occult Blood-Urine Negative /ul (Negative); Protein-Dipstick Negative (Negative); Specific Gravity, Urine 1.005 (1.002-1.030); Urine Bilirubin Dipstick Negative (Negative); Urine Clarity Clear (Clear); Urine Urobilinogen Normal (Normal)
[2024-11-14 17:46] LABS: Anion Gap 8 (5-15); BUN 10 mg/dL (7-18); BUN/Creat Ratio 12.7 RATIO (10-20); Calcium,Total 9.2 mg/dL (8.5-10.1); Chloride 104 mmol/L (98-107); Creatinine, Serum 0.79 mg/dL (0.55-1.02); EST Glomerular Filtration Rate 80 mL/min (>60); Est Glom Filt Rate - Afr Amer 96 mL/min (>60); Estimated Creatinine Clearance 73.02 ml/min; Glucose 97 mg/dL (74-106); Potassium 4.1 mmol/L (3.5-5.1); Sodium Level 139 mmol/L (136-145)
[2024-11-14 17:53] LABS: Red Blood Cells-Urine 0-5 SEEN /hpf (0-5); Squamous Epithelial Cells - UA 0-5 SEEN /hpf (5-10); Transitional Epithelial - Ur 0-5 SEEN /hpf (0-5); White Blood Cells 0-5 SEEN /hpf (0-5)
[2024-11-14 18:25] VITALS: BP 138/79; PULSE 66; RESP 18; TEMP 36.2; O2SAT 98
== END 2024-11-14 18:25 | disposition home or self-care (01) ==
PROVIDERS: Emergency Provider Emergency Medicine; PCP Internal Medicine; Referring Provider Emergency Medicine; Visit Provider Emergency Medicine
DX: I10 Essential (primary) hypertension (principal); K21.9 Gastro-esophageal reflux disease without esophagitis; Z79.899 Other long term (current) drug therapy
CPT/HCPCS: 80048; 81001; 99283

== ENCOUNTER → 2024-11-16 | Outpatient (CLI) | payer OTHER, SELFPAY ==
[2024-11-16 18:03] LABS: Cholesterol 258 mg/dL (200); High Density Lipoprotein 50 mg/dL; Triglycerides 131 mg/dL; Very Low Density Lipoprotein 26 mg/dL (5-40)
== END | disposition home or self-care (01) ==
LOC: MTLAB 15:52
PROVIDERS: PCP Internal Medicine; Referring Provider Internal Medicine; Visit Provider Internal Medicine
DX: E55.9 Vitamin D deficiency, unspecified (principal); E78.00 Pure hypercholesterolemia, unspecified